=== PATIENT | female | born 1960 | race Caucasian/White ===

== ENCOUNTER 2019-11-27 05:35 | Day surgery (SDC) | payer MEDICAID ==
[~2019-11-27] VITALS: Ht 160 cm; Wt 102.6 kg
[~2019-11-27 05:35] MED LIST: CYCLOPENTOLATE HCL 1% 2 ML OPHTHALMIC SOLUTION ONE; KETOROLAC TROMETHAMINE 0.5% 5 ML OPHTHALMIC SOLUTION ONE; MOXIFLOXACIN HCL 0.5% 3 ML OPHTHALMIC SOLUTION ONE; PHENYLEPHRINE HCL 2.5% 2 ML OPHTHALMIC SOLUTION ONE; RINGERS SOLUTION,LACTATED 500 ML IV ONE; TETRACAINE HCL/PF 0.5% 4 ML OPHTHALMIC SOLUTION ONE; TROPICAMIDE 1% 2 ML OPHTHALMIC SOLUTION ONE
[2019-11-27] MEDS ORDERED: FentaNYL CITRATE-PF 100 MCG/2 ML VIAL IVP ONE (05:36)
[2019-11-27] MEDS ORDERED: MIDAZOLAM HCL 2 MG/2 ML VIAL IVP ONE (05:36)
[2019-11-27] MEDS ORDERED: SODIUM CHLORIDE 0.9% 500 ML IV ONE (06:15)
[2019-11-27] MEDS: MOXIFLOXACIN HCL 0.5% 3 ML OPHTHALMIC SOLUTION OD SCH ×3 (06:49→07:02)
[2019-11-27] MEDS: KETOROLAC TROMETHAMINE 0.5% 5 ML OPHTHALMIC SOLUTION OD SCH ×3 (06:49→07:02)
[2019-11-27] MEDS: TROPICAMIDE 1% 2 ML OPHTHALMIC SOLUTION OD SCH ×3 (06:49→07:02)
[2019-11-27] MEDS: TETRACAINE HCL/PF 0.5% 4 ML OPHTHALMIC SOLUTION OD SCH ×3 (06:49→07:02)
[2019-11-27] MEDS: PHENYLEPHRINE HCL 2.5% 2 ML OPHTHALMIC SOLUTION OD SCH ×3 (06:49→07:02)
[2019-11-27] MEDS: CYCLOPENTOLATE HCL 1% 2 ML OPHTHALMIC SOLUTION OD SCH ×3 (06:49→07:02)
[2019-11-27 07:30] LABS: GLUCOMETER DEV NAME(LOC) SDS.; GLUCOSE,POINT OF CARE 102 MG/DL (70-110)
[2019-11-27] MEDS ORDERED: FLUT16H NASAL (07:30)
[2019-11-27] MEDS ORDERED: GABA-1181 PO (07:30)
[2019-11-27] MEDS ORDERED: LISI-661 PO (07:30)
[2019-11-27] MEDS ORDERED: CALC-789 PO (07:30)
[2019-11-27] MEDS ORDERED: CELE200 PO (07:30)
[2019-11-27] MEDS ORDERED: MULT-1251 PO (07:30)
[2019-11-27] MEDS ORDERED: LORA10TA7 PO (07:30)
[2019-11-27] MEDS ORDERED: OMEP20 PO (07:30)
[2019-11-27] MEDS ORDERED: METF-960 PO (07:30)
[2019-11-27] MEDS ORDERED: CYAN50008 PO (07:30)
[2019-11-27] MEDS ORDERED: ATOR10TA84 PO (07:30)
== END 2019-11-27 09:40 | disposition home or self-care (01) ==
LOC: SURGERY 05:35
PROVIDERS: ATTEND Ophthalmology
DX: E11.36 Type 2 diabetes mellitus with diabetic cataract (principal); H25.11 Age-related nuclear cataract, right eye; I10 Essential (primary) hypertension; Z11.59 Encounter for screening for other viral diseases; Z98.890 Other specified postprocedural states; Z90.710 Acquired absence of both cervix and uterus; Z90.722 Acquired absence of ovaries, bilateral; G47.30 Sleep apnea, unspecified; M19.90 Unspecified osteoarthritis, unspecified site; Z79.899 Other long term (current) drug therapy
CPT/HCPCS: 66984; 82962; 87635; 93005; J2250; J3010; J7120; V2632